=== PATIENT | female | born 1985 | race Two or more races ===

== ENCOUNTER 2018-12-07 04:25 | Emergency (ER) | payer MEDICAID ==
[~2018-12-07] VITALS: Ht 157.5 cm; Wt 64.0 kg
[2018-12-07] MEDS ORDERED: ACETAMINOPHEN 325 MG TABLET ONE (04:49)
[2018-12-07] MEDS ORDERED: ACETAMINOPHEN 325 MG TABLET PO ONE (05:00)
[2018-12-07 05:03] LABS: APPEARANCE,URINE Clear (CLEAR); BILIRUBIN,URINE Negative (NEGATIVE); BLOOD, URINE Small Ery/uL (NEGATIVE); COLOR,URINE Yellow (YELLOW); KETONES,URINE Negative (NEGATIVE); LEUKOCYTE ESTERASE ,URINE Small (NEGATIVE); NITRITE, URINE Negative (NEGATIVE); PROTEIN,URINE Negative (NEGATIVE); UGLUCOSE Negative (NEGATIVE); UROBILINOGEN,URINE 0.2 EU/dL (0.2)
[2018-12-07 05:11] LABS: BASOPHILS % (AUTO) 0.3 % (0.0-2.0); EOSINOPHILS % (AUTO) 2.5 % (0.0-6.0); HEMATOCRIT 37 % (33-45); HEMOGLOBIN 12.9 g/dL (11.5-14.8); LYMPHOCYTES # (AUTO) 1.3 /CMM (0.8-4.8); LYMPHOCYTES % (AUTO) 14.8 % (20.0-44.0); MEAN CORPUSCULAR HGB CONC 35 g/dl (31.0-36.0); MEAN CORPUSCULAR VOLUME 85 fL (82-100); MONOCYTES # (AUTO) 0.6 /CMM (0.1-1.30); MONOCYTES % (AUTO) 6.8 % (2.0-12.0); NEUTROPHILS # (AUTO) 6.8 /CMM (1.8-8.9); NEUTROPHILS % (AUTO) 75.6 % (43.0-81.0); PLATELET COUNT (AUTO) 236 /CMM (150-450); RED BLOOD CELL COUNT(AUTO) 4.32 MIL/uL (4.0-5.2)
--- NOTE | 2018-12-07 05:20 | NUR ---
BIBF FOR C/O CONTRACTION . PT IS 19 WKS . -N/V. PLACED ON A MONITOR,
[2018-12-07 05:21] LABS: CALCIUM, SERUM 8.5 mg/dL (8.5-10.1); CREATININE 0.6 mg/dL (0.6-1.3); POTASSIUM 3.5 mmol/L (3.5-5.1)
[2018-12-07 05:21] LABS: BACTERIA,URINE Few /HPF (None Seen); SQUAMOUS EPITHELIAL CELL,UR Few /HPF (None Seen); WBC,URINE 21-50 /HPF (0-3)
[2018-12-07 05:28] LABS: ALBUMIN 2.7 g/dL (3.4-5.0); BILIRUBIN,DIRECT 0.1 mg/dL (0.0-0.2); BILIRUBIN,TOTAL 0.2 mg/dL (0.2-1.0); TOTAL PROTEIN, SERUM 6.9 g/dL (6.4-8.2)
[2018-12-07] MEDS ORDERED: CEFTRIAXONE 1GM BAG (ER ONLY) 50 ML IV ONE (05:54)
[2018-12-07] MEDS ORDERED: CEFTRIAXONE 1 G in IV D5W 50 ML IV ONE (06:00)
[2018-12-07] MEDS ORDERED: CEFTRIAXONE 1 G VIAL IM ONE (06:00)
--- NOTE | 2018-12-07 06:00 | NUR ---
end time for rocephine: 06
--- NOTE | 2018-12-07 06:35 | NUR ---
IV removed. Catheter intact and site benign. Pressure and 4x4 applied to site. No bleeding noted.Patient discharged to home in stable condition. Written and verbal after care instructions given. Patient and verbalized understanding of instruction. pt/ were encouraged to follow up with her Ob or to go to an ER w/ Ob specialty.
[2018-12-07 07:04] VITALS: BP 106/62
== END 2018-12-07 06:40 | disposition home or self-care (01) ==
LOC: ER 04:33
DX: O23.32 Infections of other parts of urinary tract in pregnancy, second trimester (principal); Z3A.18 18 weeks gestation of pregnancy
CPT/HCPCS: 36415; 80048; 80076; 81001; 83690; 85025; 87086; 96365; 99283; J0696; 81000-TC; J7060